=== PATIENT | male | born 1965 | race Hispanic/Latino ===

== ENCOUNTER 2019-07-15 06:03 | Day surgery (SDC) | payer OTHER ==
--- NOTE | 2019-07-15 09:20 | OP ---
DATE OF PROCEDURE: 07/15/2019 PROCEDURE PERFORMED: Colonoscopy. PREOPERATIVE DIAGNOSIS: A 53-year-old male, undergoing colonoscopy for colon cancer screening. POSTOPERATIVE DIAGNOSES: Normal colonoscopy except for hemorrhoids. The patient had a tortuous colon and also had some belly breathing, which made the exam somewhat difficult. DESCRIPTION OF PROCEDURE: The patient was placed on his left lateral position and was given sedation by Anesthesia Department. A rectal exam was done before the scope was advanced into the rectum. No lesions felt on rectal exam. A [employer] video colonoscope was introduced into the rectum and advanced all the way into the cecum. The patient had a tortuous colon and also there was belly breathing, which made the exam somewhat difficult. The mucosa appeared normal throughout the colon with normal vascular pattern. The appendiceal orifice, ileocecal valve, and cecum were well seen. No pathology seen. Withdrawal of scope in the cecum to ascending colon, hepatic flexure, no lesion seen. In the transverse colon, splenic flexure, descending colon, sigmoid colon, no lesion seen. Retroflexion of scope in the rectum revealed hemorrhoids. DISCHARGE PLAN: This is a 53-year-old male, came for colonoscopy for colon cancer screening. The colonoscopy showed no pathology. DISCHARGE RECOMMENDATIONS: 1. The patient advised to call me if he develops abdominal pain, hematochezia, or fever. 2. In the absence of any of the above symptoms, he will come back to me in 2 weeks. Recommendation, repeat colonoscopy in 10 years. Job ID: [id number]
[2019-07-15] MEDS ORDERED: PROPOFOL 200 MG/20 ML VIAL ONE (13:43)
== END 2019-07-15 09:07 | disposition home or self-care (01) ==
LOC: SDC 06:03
PROVIDERS: ATTEND Internal Medicine Gastroenterology
PROC: 0DJD8ZZ Inspection of Lower Intestinal Tract, Via Natural or Artificial Opening Endoscopic (ICD-10-PCS; principal; 2019-07-15)
DX: Z12.11 Encounter for screening for malignant neoplasm of colon (principal); K64.9 Unspecified hemorrhoids; Q43.8 Other specified congenital malformations of intestine; I10 Essential (primary) hypertension; Z88.7 Allergy status to serum and vaccine
CPT/HCPCS: J2704

== ENCOUNTER 2023-10-13 07:09 | Emergency (ER) | payer OTHER ==
[2023-10-13] MEDS ORDERED: Ketorolac Tromethamine 30 MG (1 mL) VIAL ONE (07:45)
[2023-10-13] MEDS ORDERED: Acetaminophen 500 MG TAB ONE ×2 (07:45→07:51)
[2023-10-13] MEDS ORDERED: Albuterol 200 PUFF (6.7GM INHALER) ONE (07:51)
[2023-10-13 10:19] LABS: Influenza A by NAA Not Detected (NotDetected); Influenza B by NAA Not Detected (NotDetected); SARS-CoV-2 NAA Rapid Test Not Detected (NotDetected)
== END 2023-10-13 08:05 | disposition home or self-care (01) ==
LOC: ERS 07:09
DX: J18.9 Pneumonia, unspecified organism (principal); I10 Essential (primary) hypertension; J06.9 Acute upper respiratory infection, unspecified; E11.9 Type 2 diabetes mellitus without complications; F17.220 Nicotine dependence, chewing tobacco, uncomplicated
CPT/HCPCS: 71046; 96372; J1885

== ENCOUNTER 2024-03-25 13:35 | Outpatient (CLI) | payer OTHER | END 2024-03-25 13:36 | disposition home or self-care (01) | LOC: BICRAD 13:35 | PROVIDERS: ATTEND Family Medicine | DX: M54.50 Low back pain, unspecified (principal); M25.511 Pain in right shoulder; M25.512 Pain in left shoulder; M25.561 Pain in right knee; M25.562 Pain in left knee; M47.816 Spondylosis without myelopathy or radiculopathy, lumbar region; M43.16 Spondylolisthesis, lumbar region; M17.0 Bilateral primary osteoarthritis of knee; M77.8 Other enthesopathies, not elsewhere classified | CPT/HCPCS: 72110 ==

== ENCOUNTER 2025-02-10 08:23 | Outpatient (CLI) | payer OTHER ==
[2025-02-10] MEDS ORDERED: Iopamidol 370 76% 100 ML VIAL ONE (14:43)
== END 2025-02-10 08:24 | disposition home or self-care (01) ==
LOC: CT 08:23
PROVIDERS: ATTEND Family Medicine
DX: K85.92 Acute pancreatitis with infected necrosis, unspecified (principal); K86.2 Cyst of pancreas; J90 Pleural effusion, not elsewhere classified
CPT/HCPCS: 74178; Q9967

== ENCOUNTER 2025-03-27 08:43 | Day surgery (SDC) | payer OTHER ==
[2025-03-27 08:59] LABS: #Basophils 0.03 10x3/uL (0.0-0.2); #Eosinophils 0.04 10x3/uL (0.0-0.7); #Monocytes 1.49 10x3/uL (0.11-0.59); #Neutrophils 7.12 10x3/uL (1.40-6.50); %Basophils 0.3 % (0.0-1.0); %Eosinophils 0.4 % (0.0-10.0); %Lymphocytes 14.6 % (21.0-51.0); %Monocytes 14.4 % (0.0-10.0); %Neutrophils 68.8 % (42.0-75.0); Hematocrit 34.1 % (42.0-52.0); Hemoglobin 11.0 g/dL (14.0-18.0); Mean Corpuscular Hemoglobin 28.4 pg (27.0-31.0); Mean Corpuscular Volume 88.1 fL (78.0-98.0); Platelet Count 356 10x3/uL (130-400); Red Blood Cell (RBC) Count 3.87 mill/uL (4.70-6.10); White Blood Cell (WBC) Count 10.34 10x3/uL (4.8-10.8)
[2025-03-27 09:18] LABS: INR-International Normal Ratio 1.3; Prothrombin Time 15.8 sec (12.0-14.7)
[2025-03-27 09:19] LABS: PTT 45.9 sec (22.9-36.1)
[2025-03-27] MEDS ORDERED: CEFAZOLIN 2 GM VIAL ONE (10:05)
[2025-03-27] MEDS ORDERED: Lidocaine 1% w/Epinephrine 1:100K 20 ML VIAL ONE (10:11)
[2025-03-27] MEDS ORDERED: Sodium Bicarbonate 2.5 MEQ/5 ML SDV ONE (10:11)
[2025-03-27] MEDS ORDERED: Iopamidol 370 76% 100 ML VIAL ONE (12:05)
== END 2025-03-27 12:45 | disposition home or self-care (01) ==
LOC: CT 08:43
PROVIDERS: ATTEND Surgery
DX: T81.43XA Infection following a procedure, organ and space surgical site, initial encounter (principal); R10.84 Generalized abdominal pain; K86.3 Pseudocyst of pancreas; K80.20 Calculus of gallbladder without cholecystitis without obstruction
CPT/HCPCS: 36000; 36415; 49406; 77002; 85025; 85610; 85730; 87070; 87077; 87186; 87205; C1729; C1769; J3010; Q9967